=== PATIENT | male | born 1990 | race Caucasian/White ===

== ENCOUNTER 2017-06-10 08:50 | Day surgery (SDC) | payer MEDICAID, OTHER ==
[~2017-06-10 08:50] MED LIST: Clindamycin in 0.9 % Sod Chlor 900 MG/50 ML BAG IV SCH; Lactated Ringers 1,000 ML IV SCH; Sodium Chloride 0.9% 10 ML Syringe FLUSH PRN
[2017-06-10] MEDS ORDERED: Clindamycin in 0.9 % Sod Chlor 900 MG/50 ML BAG IV SCH (10:00)
[2017-06-10] MEDS ORDERED: HYDROmorphone 2 MG/ML SDV IV ONE (10:03)
[2017-06-10] MEDS ORDERED: Lactated Ringers 1,000 ML IV ONE (10:03)
[2017-06-10] MEDS ORDERED: Midazolam 1 MG/ML 2 ML SDV IV ONE (10:03)
[2017-06-10] MEDS ORDERED: Rocuronium 100 MG/10 ML MDV IV ONE (10:03)
[2017-06-10] MEDS ORDERED: Propofol 200 MG/20 ML SDV IV ONE (10:03)
[2017-06-10] MEDS ORDERED: Ondansetron 4 MG/2 ML SDV IVPUSH ONE (10:03)
[2017-06-10] MEDS ORDERED: Ketorolac 30 MG/ML SDV IVPUSH ONE (10:03)
[2017-06-10] MEDS ORDERED: Dexamethasone 4 MG/ML 5 ML MDV IVPUSH ONE (10:03)
[2017-06-10] MEDS ORDERED: Phenylephrine 1% 10 MG/ML SDV IV ONE (10:03)
[2017-06-10] MEDS ORDERED: Succinylcholine 200 MG/10 ML MDV IV ONE (10:03)
[2017-06-10] MEDS ORDERED: fentaNYL 100 MCG/2 ML SDV IV ONE (10:03)
[2017-06-10] MEDS ORDERED: Gentamicin 40 MG/ML 2 ML Vial ONE (10:43)
[2017-06-10] MEDS ORDERED: EPINEPHrine 1 MG/ML SDV ONE (10:43)
[2017-06-10] MEDS ORDERED: Bupivacaine 0.5%/EPINEPHrine 1:200,000 50 ML MDV INJECT ONE (11:30)
[2017-06-10] MEDS ORDERED: fentaNYL 100 MCG/2 ML SDV IVPUSH PRN (11:59)
[2017-06-10] MEDS ORDERED: Naloxone 0.4 MG/ML SDV IVPUSH PRN (11:59)
[2017-06-10] MEDS ORDERED: HYDROmorphone 2 MG/ML SDV IVPUSH PRN (11:59)
[2017-06-10] MEDS ORDERED: Ondansetron 4 MG/2 ML SDV IVPUSH PRN (11:59)
[2017-06-10] MEDS ORDERED: Albuterol 0.083% 2.5 MG/3 ML Neb Soln NEB PRN (11:59)
[2017-06-10] MEDS ORDERED: HYDROmorphone 2 MG/ML SDV IV PRN (11:59)
[2017-06-10] MEDS ORDERED: Promethazine 25 MG/ML SDV IM PRN (11:59)
[2017-06-10] MEDS ORDERED: Ketorolac 60 MG/2 ML SDV IM ONE (12:00)
[2017-06-10] MEDS ORDERED: Acetaminophen/oxyCODONE 325-5 MG Tab PO PRN (12:00)
[2017-06-10] MEDS ORDERED: Lactated Ringers 1,000 ML IV SCH (12:00)
--- NOTE | 2017-06-10 12:09 | PCM.OPNOTE ---
- General Post-Op/Procedure Note Date of Surgery/Procedure: 06/10/17 Operative Procedure(s): right shoulder arthroscopy, sad, wilman, bursectomy, labral debridement Findings: right shoulder impingement acromioclavicular arthrosis glenoid labral degeneration bursitis Pre Op Diagnosis: right shoulder impingement. acromioclavicular arthrosis. glenoid labral degeneration. bursitis Post-Op Diagnosis: right shoulder impingement. acromioclavicular arthrosis. glenoid labral degeneration. bursitis Anesthesia Technique: General ET Tube Primary Surgeon: Tyshawn Awan EBL in mLs: 10 Complications: none Condition: Good
[2017-06-10 14:55] VITALS: BP 106/62
--- NOTE | 2017-06-14 07:29 | OR ---
DATE OF OPERATION: 06/10/2017 SURGEON: Tyshawn Awan DO PREOPERATIVE DIAGNOSES: 1. Right shoulder impingement. 2. Right shoulder bursitis. 3. Acromioclavicular arthrosis. POSTOPERATIVE DIAGNOSES: 1. Right shoulder impingement. 2. Right shoulder bursitis. 3. Acromioclavicular arthrosis. PROCEDURE PERFORMED: 1. Right shoulder arthroscopy with subacromial decompression. 2. Distal clavicle resection. 3. Bursectomy. 4. Debridement of labrum. ANESTHESIA: General endotracheal intubation. FLUID: Lactated ringer solution. ESTIMATED BLOOD LOSS: 0. COMPLICATIONS: None. SPECIMENS: None. DISPOSITION: Stable to PACU. INDICATIONS: The patient was seen previously in the clinic by Dr. Woody and Jody Arroyo NP. He had failed nonoperative treatment since June. He was injured at work. Preoperative MRI confirmed the above-mentioned diagnosis. Risks and benefits of the procedure were explained to the patient. Informed consent was obtained. DESCRIPTION OF PROCEDURE: The patient was seen preoperatively by myself and anesthesia staff in the preoperative holding area where the operative site was marked. He was brought to the operative suite by the anesthesia staff where general anesthesia was administered. He was placed into a beach chair position. The right upper extremity was then prepped and draped in a sterile manner. Time- out was called identifying the correct patient, correct procedure, and the correct site and that antibiotics had been given within the appropriate period of time. We did use 240 mg of gentamicin in the first pack. The posterior portal was then made. Joint was entered. This showed a small amount of labral tearing anterior to the biceps tendon. I then made an anterior portal, and then shaved this and used my ablation unit to stabilize any edges. The biceps tendon was in good condition. No glenohumeral arthritis was seen. I then removed the instruments and then went to the subacromial space through the posterior portal, and then made a lateral portal, and then used the shaver to perform bursectomy. I then used the ablation unit to demarcate the distal acromioclavicular joint as well as the hook of the acromion. After this had been done, I then used a bur to remove the hook of the acromion. I then made another anterior portal and performed a distal clavicle resection. I did use shaver and ablation unit to clean up some soft tissue as well as to prevent bleeding during the case. I removed approximately 9 to 10 mm of the distal clavicle. I then removed all my instruments and closed the portals with 3-0 nylon in a mattress manner. I then applied Betadine soaked Adaptic as well as a sterile dressing. The patient was then allowed to awaken from general anesthesia and taken to the PACU in stable condition. /[id number] JONNIE/AZEEM
== END 2017-06-10 15:40 | disposition home or self-care (01) ==
LOC: FB.SDS 08:50 → FB.MS 12:38 → FB.SDS 15:40 → FB.MS 15:40
PROVIDERS: ATTEND Orthopaedic Surgery
DX: M75.51 Bursitis of right shoulder (principal); M19.011 Primary osteoarthritis, right shoulder; M25.811 Other specified joint disorders, right shoulder; F33.1 Major depressive disorder, recurrent, moderate; Z88.0 Allergy status to penicillin; Z79.899 Other long term (current) drug therapy; Z87.891 Personal history of nicotine dependence; X58.XXXA Exposure to other specified factors, initial encounter; Y92.69 Other specified industrial and construction area as the place of occurrence of the external cause
CPT/HCPCS: 29823; 29824; 29826; A9270; J0171; J0330; J1100; J1170; J1580; J1885; J2250; J2370; J2405; J2704; J3010; J3490; J7120

== ENCOUNTER 2018-07-16 23:17 | Emergency (ER) | payer BC, OTHER ==
[2018-07-16] MEDS ORDERED: Azithromycin 250 MG Tab PO ONE (23:18)
[2018-07-16] MEDS ORDERED: Hydrocortisone/Neomycin/Polymyxin B Otic Susp 10 ML Bottle EARBOTH ONE (23:18)
[2018-07-16] MEDS ORDERED: Hydrocortisone/Neomycin/Polymyxin B Otic Susp 10 ML Bottle EARLF ONE (23:36)
[2018-07-16] MEDS ORDERED: Ibuprofen 600 MG Tab PO STA (23:37)
--- NOTE | 2018-07-16 23:43 | EDM.PDOC ---
ED HPI GENERAL MEDICAL PROBLEM - General Stated Complaint: LT EAR PAIN Time Seen by Provider: 07/16/18 23:17 Source of Information: Reports: Patient History Limitations: Reports: No Limitations - History of Present Illness INITIAL COMMENTS - FREE TEXT/NARRATIVE: 28 y.o.w.m came to the ed due left ear pain since this afternoon. No N/V/D no dizziness or any other acute medical issues. BP 151/100 RR 15 Pulse ox 99% on RA Pulse 59, Temp 97.6 Onset Date: 07/16/18 Onset Time: 14:00 Duration: Hour(s):, Getting Worse Location: Reports: Face Quality: Reports: Ache, Burning, Dull, Same as Previous Episode Severity: Moderate (4/10) Improves with: Reports: Medication, Rest Worsens with: Reports: Movement Context: Reports: Sick Contact Associated Symptoms: Reports: No Other Symptoms Treatments PREPARED [employer]: Reports: Acetaminophen - Related Data Allergies Allergy/AdvReac Type Severity Reaction Status Date / Time Penicillins Allergy UNKNOWN Verified 06/08/17 10:53 Home Meds: Home Meds ARIPiprazole [Abilify] 2 mg PO DAILY 06/08/17 [History] Citalopram Hydrobromide [Celexa] 40 mg PO DAILY 06/08/17 [History] Past Medical History - Past Health History Medical/Surgical History: Denies Medical/Surgical History HEENT History: Reports: Impaired Vision Cardiovascular History: Reports: None Respiratory History: Reports: None Gastrointestinal History: Reports: None Genitourinary History: Reports: None Neurological History: Reports: Concussion, Migraines Psychiatric History: Reports: None Endocrine/Metabolic History: Reports: Obesity/BMI 30+ Hematologic History: Reports: None Immunologic History: Reports: None Oncologic (Cancer) History: Reports: None Dermatologic History: Reports: None - Past Surgical History Head Surgeries/Procedures: Reports: None HEENT Surgical History: Reports: None Cardiovascular Surgical History: Reports: None Respiratory Surgical History: Reports: None GI Surgical History: Reports: None Male Surgical History: Reports: None Endocrine Surgical History: Reports: None Neurological Surgical History: Reports: None Musculoskeletal Surgical History: Reports: Arthroscopic Knee, Arthroscopic Procedure Oncologic Surgical History: Reports: None Dermatological Surgical History: Reports: None Social & Family History - Caffeine Use Caffeine Use: Reports: Soda ED ROS ENT - Review of Systems Review Of Systems: See Below Constitutional: Reports: No Symptoms HEENT: Reports: Ear Pain Respiratory: Reports: No Symptoms Cardiovascular: Reports: No Symptoms Endocrine: Reports: No Symptoms GI/Abdominal: Reports: No Symptoms : Reports: No Symptoms Musculoskeletal: Reports: No Symptoms Skin: Reports: No Symptoms Neurological: Reports: No Symptoms Psychiatric: Reports: No Symptoms Hematologic/Lymphatic: Reports: No Symptoms Immunologic: Reports: No Symptoms ED EXAM, ENT - Physical Exam Exam: See Below Exam Limited By: No Limitations General Appearance: Alert, WD/WN, Mild Distress Eye Exam: Bilateral Eye: Normal Inspection Ears: Canal Swelling, TM Bulging, TM Dullness, TM Erythema Nose: Normal Inspection, Normal Mucousa, No Blood Mouth/Throat: Normal Inspection, Normal Gums, Normal Lips, Normal Oropharynx Head: Atraumatic, Normocephalic Neck: Normal Inspection, Supple, Non-Tender, Full Range of Motion Respiratory/Chest: No Respiratory Distress, Lungs Clear, Normal Breath Sounds, No Accessory Muscle Use, Chest Non-Tender Cardiovascular: Normal Peripheral Pulses, Regular Rate, Rhythm, No Edema, No Gallop, No JVD, No Murmur, No Rub GI/Abdominal: Normal Bowel Sounds, Soft, Non-Tender, No Organomegaly, No Abnormal Bruit, No Mass, Pelvis Stable (Male) Exam: Deferred Rectal (Males) Exam: Deferred Back: Normal Inspection, Full Range of Motion Extremities: Normal Inspection, Normal Range of Motion, Non-Tender, No Pedal Edema, Normal Capillary Refill Neurological: Alert, Oriented, CN II-XII Intact, Normal Cognition, Normal Gait, No Motor/Sensory Deficits Psychiatric: Normal Affect, Normal Mood Skin: Warm, Dry, Intact, Normal Color, No Rash Lymphatic: No Adenopathy Course - Vital Signs Text/Narrative:: 28 y.o.w.m came to the ed due left ear pain since this afternoon. No N/V/D no dizziness or any other acute medical issues. BP 151/100 RR 15 Pulse ox 99% on RA Pulse 59, Temp 97.6 PE: WNWD W M witl left ear pain Impression: OM/OE left ear. Tx: Cortisporine, Z Pack, Motrin Reexam: Improved Plan: D/C with instructions - Orders/Labs/Meds Meds: Medications Discontinued Medications Generic Name Dose Route Start Last Admin Trade Name Freq PRN Reason Stop Dose Admin Ibuprofen 600 mg 01/21/19 23:37 07/16/18 23:47 Motrin PO 07/16/18 23:38 600 mg ONETIME STA Administration Neomycin/Polymyxin/Hydrocortisone 0.01 ml 07/16/18 23:36 07/16/18 23:48 Cortisporin Otic Susp EARLF 07/16/18 23:37 Not Given ONETIME ONE Departure - Departure Time of Disposition: 23:43 Disposition: Home, Self-Care 01 Condition: Good Clinical Impression: Otitis media Qualifiers: Laterality: left Spontaneous tympanic membrane rupture: without spontaneous rupture Otitis externa Qualifiers: Noninfectious otitis externa type: other type - Discharge Information Instructions: Otitis Media, Adult, [id number] Referrals: Mike Gordon PA [Primary Care Provider] - Forms: ED Department Discharge Additional Instructions: Please apply 3 ear drops into left ear, Motrin for pain, Z-pack as recommended, please f/u, come back if your symptoms get worse acutely
[2018-07-17 00:08] VITALS: BP 151/100
== END 2018-07-17 00:05 | disposition home or self-care (01) ==
LOC: FB.ED 23:17
DX: H66.92 Otitis media, unspecified, left ear (principal); H60.92 Unspecified otitis externa, left ear; Z88.0 Allergy status to penicillin
CPT/HCPCS: 99282; A9270